=== PATIENT | male | born 1955 | race Caucasian/White ===

== ENCOUNTER 2020-09-04 10:07 | Inpatient (IN) | payer BC, MEDICARE ==
[2020-09-04] VITALS (15 sets, daily range): BP systolic 85–169; BP diastolic 42–89
[~2020-09-04] VITALS: Ht 190.5 cm; Wt 141.5 kg
[~2020-09-04 10:07] MED LIST: ALPR-624 PO; ATOR10TA PO; CARI350T PO; GEMF600T89 PO; LISI-234 PO; LOP25T PO; REM15T PO; VALP250C44 PO
[2020-09-04] MEDS ORDERED: normal saline 1000ML IV soln IVB ONE (10:15)
[2020-09-04] MEDS ORDERED: pantoprazole 40 MG vial IV ONE (10:15)
[2020-09-04] MEDS ORDERED: tranexamic acid 100mg/ml inj. IV ONE (10:20)
[2020-09-04] MEDS: pantoprazole 40MG/NS 100ML BAG 100 ML IV SCH ×3 (10:37→21:44)
[2020-09-04 10:39] LABS: BASOPHILS % (AUTO) 0.1 % (0-1); EOSINOPHILS % (AUTO) 0.1 % (0-6); LYMPHOCYTES # (AUTO) 1.2 X10'3 (1.1-4.8); LYMPHOCYTES % (AUTO) 9.9 % (21-51); MEAN CORPUSCULAR HEMOGLOBIN 30.3 PG (27.0-31.0); MEAN CORPUSCULAR VOLUME 89.1 FL (78-98); MONOCYTES # (AUTO) 0.6 X10'3 (0-0.9); MONOCYTES % (AUTO) 4.9 % (2-12); NEUTROPHILS # (AUTO) 10.2 X10'3 (1.8-7.7); PLATELET COUNT 198 X10'3 (140-440); RED BLOOD COUNT 2.19 X10'6 (4.70-6.10); RED CELL DISTRIBUTION WIDTH 13.2 % (11.5-14.5)
[2020-09-04 10:46] LABS: HEMATOCRIT 19.5 % (42.0-52.0); HEMOGLOBIN 6.6 g/dl (14.0-17.9)
[2020-09-04 10:52] LABS: PARTIAL THROMBOPLASTIN TIME 23 SECONDS (22-32)
--- NOTE | 2020-09-04 10:52 | NUR ---
Pt's is Megha Barrland [phone]
[2020-09-04 10:54] LABS: ALANINE AMINOTRANSFERASE 16 U/L (12-78); ALBUMIN 3.4 G/DL (3.4-5.0); ALBUMIN/GLOBULIN RATIO 1.3 (1.1-1.5); ALKALINE PHOSPHATASE 26 IU/L (46-116); ANION GAP 14 (8-16); ASPARTATE AMINO TRANSFERASE 10 U/L (10-37); BILIRUBIN,TOTAL 0.2 MG/DL (0.1-1.0); BLOOD UREA NITROGEN 43 MG/DL (7-18); BUN/CREATININE RATIO 35.5 (5.4-32.0); CALCIUM 7.9 MG/DL (8.5-10.1); CHLORIDE 104 MMOL/L (99-107); CREATININE 1.21 MG/DL (0.60-1.10); GLUCOSE 269 MG/DL (70-104); POTASSIUM 4.5 MMOL/L (3.5-5.1); SODIUM 140 MMOL/L (135-145); TOTAL CARBON DIOXIDE 21.6 MMOL/L (24-32); eGFR 61 ML/MIN
[2020-09-04] MEDS ORDERED: magnesium Cl slow-release 64mg tablet PO PRN (11:05)
[2020-09-04] MEDS ORDERED: potassium Cl 20 mEq SR tablet PO PRN ×2 (11:05)
[2020-09-04] MEDS ORDERED: ondansetron/PF 4mg/2ml inj IV PRN (11:05)
[2020-09-04] MEDS ORDERED: potassium Cl 40MEQ/1/2NS 520ml 520 ML IV PRN ×2 (11:05)
[2020-09-04] MEDS ORDERED: magnesium 2GM in 50ml NS 50 ML IV PRN (11:05)
[2020-09-04] MEDS ORDERED: magnesium 4gm in 100ml NS 100 ML IV PRN (11:05)
[2020-09-04] MEDS ORDERED: ATOR40TA72 PO (11:40)
[2020-09-04] MEDS ORDERED: ESCI10TA66 PO (11:40)
[2020-09-04] MEDS ORDERED: METF-438 PO (11:40)
[2020-09-04] MEDS ORDERED: GABA-530 PO (11:40)
[2020-09-04] MEDS ORDERED: FENO160T PO (11:40)
[2020-09-04] MEDS ORDERED: METO25TA6 PO (11:40)
[2020-09-04] MEDS ORDERED: CLON-568 PO (11:40)
[2020-09-04] MEDS ORDERED: LISI1TAB29 PO (11:40)
[2020-09-04] MEDS ORDERED: TRAZ150T78 PO (11:40)
[2020-09-04 11:41] LABS: CLARITY,URINE CLEAR (Clear); COLOR,URINE YELLOW (Yellow); GLUCOSE, URINE 500 mg/dl (Neg); KETONES,URINE TRACE mg/dl (Neg); LEUKOCYTE ESTERASE ,URINE NEGATIVE (Neg); NITRITES, URINE NEGATIVE (Neg); OCCULT BLOOD,URINE NEGATIVE (Neg); PROTEIN,URINE NEGATIVE (Neg); UROBILINOGEN,URINE 0.2 E.U/dL (0.2-1.0)
[2020-09-04] MEDS: normal saline 1000ml 1,000 ML IV SCH ×2 (11:44→21:05)
[2020-09-04 11:46] LABS: UA COLLECTION TYPE URINAL
--- NOTE | 2020-09-04 13:54 | NUR ---
Called to give pt's an update.
[2020-09-04] MEDS ORDERED: MESSAGE TO PHARMACY PO ONE (16:20)
[2020-09-04] MEDS ORDERED: glucagon, human recombinant 1mg kit SUBCUT PRN (16:20)
[2020-09-04] MEDS ORDERED: insulin Lispro (HumaLOG) vial - multi-dose SQ SCH (16:20)
[2020-09-04] MEDS ORDERED: dextrose ORAL solution 15 GM/59 ML bottle PO PRN ×2 (16:20)
[2020-09-04] MEDS ORDERED: dextrose 50%-water 50ml dispensing syringe IV PRN ×2 (16:20)
--- NOTE | 2020-09-04 16:48 | NUR ---
notified. PAGER ID: [phone] MESSAGE: RE: Joe Otero. [phone]. Could we do a CL diet for patient for dinner tonight? Patient has not eaten/likely not to go to GI for colonoscopy today. Thanks. Also both units of RBC given. Thanks. Dasha. [id number]
--- NOTE | 2020-09-04 17:58 | NUR ---
ct scan technologist to take patient down to GI Lab
[2020-09-04] MEDS ORDERED: MIDAZolam 5mg/5ml vial ONE (18:10)
[2020-09-04] MEDS ORDERED: fentaNYL/PF 50MCG/1 ML 2ML syringe ONE (18:10)
[2020-09-04] MEDS ORDERED: LIDOcaine Viscous 15ml cup ONE (18:10)
--- NOTE | 2020-09-04 18:28 | NUR ---
Problems reprioritized. Patient report given, questions answered & plan of care reviewed with HERMELINDO Antonio.
--- NOTE | 2020-09-04 18:30 | NUR ---
Pt is in GI LAB. I have received report and will assume care for him when he arrives back onto the unit.
[2020-09-04] MEDS ORDERED: epiNEPHrine 0.1mg/ml 10ml syringe ONE (19:21)
[2020-09-04] MEDS: K and/or MAG REPLACEMENT MC SCH (20:00)
--- NOTE | 2020-09-04 20:45 | NUR ---
Pt returned to unit. Vitals obtained, reoriented to unit, physical assessment completed. Pt c/o of mild abd pain r/t gas from EGD procedure
[2020-09-04] MEDS: insulin glargine (Lantus) pen - multi-dose SQ SCH (21:00)
[2020-09-04] MEDS: gabapentin 100mg capsule PO SCH (21:43)
[2020-09-04] MEDS: traZODone 150mg tablet PO SCH (21:43)
[2020-09-04] MEDS: metoprolol tartrate 25mg tablet PO SCH (21:44)
[2020-09-05] VITALS (10 sets, daily range): BP systolic 87–144; BP diastolic 35–75
[2020-09-05 00:30] LABS: RED BLOOD COUNT 2.11 X10'6 (4.70-6.10)
[2020-09-05 00:32] LABS: BASOPHILS % (AUTO) 0.1 % (0-1); EOSINOPHILS % (AUTO) 0.1 % (0-6); LYMPHOCYTES # (AUTO) 1.1 X10'3 (1.1-4.8); LYMPHOCYTES % (AUTO) 19.7 % (21-51); MEAN CORPUSCULAR HEMOGLOBIN 31.4 PG (27.0-31.0); MEAN CORPUSCULAR HGB CONC 34.9 g/dL (33.0-36.5); MEAN CORPUSCULAR VOLUME 90.2 FL (78-98); MONOCYTES # (AUTO) 0.3 X10'3 (0-0.9); MONOCYTES % (AUTO) 5.8 % (2-12); NEUTROPHILS # (AUTO) 4.2 X10'3 (1.8-7.7); NEUTROPHILS % (AUTO) 74.3 % (42-75); PLATELET COUNT 113 X10'3 (140-440); RED CELL DISTRIBUTION WIDTH 13.8 % (11.5-14.5); WHITE BLOOD COUNT 5.7 X10'3 (4.5-11.0)
[2020-09-05 00:40] LABS: HEMOGLOBIN 6.6 g/dl (14.0-17.9)
--- NOTE | 2020-09-05 00:44 | NUR ---
NOTIFIED PAGER ID: [phone] MESSAGE: [phone] Joe Kauffman Hemogram just came in at 6.6 and 19 bp and it is 80/38 NS running at [address]441
[2020-09-05] MEDS: pantoprazole 40MG/NS 100ML BAG 100 ML IV SCH ×5 (03:29→20:17)
--- NOTE | 2020-09-05 03:33 | NUR ---
Spoke with regarding abnormal hemogram results of 6.6 and 19. No noticeable change in his blood levels since since arriving in the ER and recieving two units of PRBCs. Recieved orders to tt Addendum: 09/05/20 at 0343 by Marisela Love RN note was submitted early..... recieved orders to transfuse 1 unit PRBCs this shift with a redraw hemogram in am.
--- NOTE | 2020-09-05 06:38 | NUR ---
Patient in room PCU 3012. I have received report from Marisela CASAREZ and had the opportunity to ask questions and assume patient care.
--- NOTE | 2020-09-05 06:39 | NUR ---
Problems reprioritized. Patient report given, questions answered & plan of care reviewed with Katherin CASAREZ.
[2020-09-05 06:53] LABS: ALBUMIN 2.7 G/DL (3.4-5.0); ANION GAP 10 (8-16); BLOOD UREA NITROGEN 24 MG/DL (7-18); BUN/CREATININE RATIO 25.8 (5.4-32.0); CALCIUM 7.2 MG/DL (8.5-10.1); CHLORIDE 110 MMOL/L (99-107); CREATININE 0.93 MG/DL (0.60-1.10); GLUCOSE 136 MG/DL (70-104); MAGNESIUM 1.7 MG/DL (1.5-2.4); POTASSIUM 3.6 MMOL/L (3.5-5.1); SODIUM 143 MMOL/L (135-145); TOTAL CARBON DIOXIDE 22.8 MMOL/L (24-32); eGFR 82 ML/MIN
[2020-09-05] MEDS: K and/or MAG REPLACEMENT MC SCH ×2 (07:03→18:41)
[2020-09-05 07:27] LABS: BASOPHILS % (AUTO) 0.1 % (0-1); EOSINOPHILS % (AUTO) 0.6 % (0-6); HEMOGLOBIN 7.3 g/dl (14.0-17.9); LYMPHOCYTES # (AUTO) 1.6 X10'3 (1.1-4.8); MEAN CORPUSCULAR HEMOGLOBIN 31.5 PG (27.0-31.0); MEAN CORPUSCULAR VOLUME 90.1 FL (78-98); MEAN PLATELET VOLUME 8.8 FL (7.4-10.4); MONOCYTES # (AUTO) 0.3 X10'3 (0-0.9); MONOCYTES % (AUTO) 6.5 % (2-12); NEUTROPHILS # (AUTO) 3.2 X10'3 (1.8-7.7); NEUTROPHILS % (AUTO) 61.8 % (42-75); PLATELET COUNT 110 X10'3 (140-440); RED BLOOD COUNT 2.31 X10'6 (4.70-6.10); RED CELL DISTRIBUTION WIDTH 14.2 % (11.5-14.5); WHITE BLOOD COUNT 5.1 X10'3 (4.5-11.0)
[2020-09-05 07:38] LABS: HEMATOCRIT 20.8 % (42.0-52.0)
[2020-09-05] MEDS: gabapentin 100mg capsule PO SCH ×2 (08:35→20:21)
[2020-09-05] MEDS: metoprolol tartrate 25mg tablet PO SCH ×2 (08:38→20:21)
[2020-09-05] MEDS: fenofibrate 145mg tablet PO SCH (08:38)
[2020-09-05] MEDS: ESCITALOPRAM OXALATE 5 MG TABLET PO SCH (08:39)
[2020-09-05] MEDS: atorvastatin 20mg tablet PO SCH (08:39)
[2020-09-05] MEDS: normal saline 1000ml 1,000 ML IV SCH ×2 (09:53→20:22)
--- NOTE | 2020-09-05 10:26 | NUR ---
Patient with BM, patient flushed before getting sample. Addendum: 09/05/20 at 1027 by Katherin Branham RN Amended: Links added.
--- NOTE | 2020-09-05 10:32 | NUR ---
PAGER ID: [phone] MESSAGE: [id number] Mr. Kauffman uses a CPAP at [facility]. Can he get an order to be fitted with ours, family can not bring his in. Katherin Esteban41 Addendum: 09/05/20 at [facility] by Katherin Branham RN Received order from Dr. Patrick for CPAP at [facility]. Page sent to RT with order for CPAP at [facility].
[2020-09-05 12:44] LABS: OCCULT BLOOD STOOL POSITIVE (Neg)
[2020-09-05 14:29] LABS: HEMOGLOBIN 7.2 g/dl (14.0-17.9); MEAN CORPUSCULAR HEMOGLOBIN 30.8 PG (27.0-31.0); MEAN CORPUSCULAR HGB CONC 34.4 g/dL (33.0-36.5); MEAN CORPUSCULAR VOLUME 89.5 FL (78-98); MEAN PLATELET VOLUME 8.4 FL (7.4-10.4); PLATELET COUNT 111 X10'3 (140-440); RED BLOOD COUNT 2.33 X10'6 (4.70-6.10); WHITE BLOOD COUNT 4.4 X10'3 (4.5-11.0)
[2020-09-05] MEDS: clonazePAM 1mg tablet PO PRN (14:31)
[2020-09-05 14:36] LABS: HEMATOCRIT 20.8 % (42.0-52.0)
--- NOTE | 2020-09-05 15:11 | NUR ---
DM Consult: A1C 7.1. Pt admit DX acute upper GIB s/p EGD w/ hx T2DM. Written DM ed w/ RD contact information placed in pt chart. To provide full initial assessment on above date. Addendum: 09/05/20 at [address] Amended: Links added.
--- NOTE | 2020-09-05 18:12 | NUR ---
Problems reprioritized. Patient report given, questions answered & plan of care reviewed with NOC Shift.
[2020-09-05] MEDS: traZODone 150mg tablet PO SCH (20:21)
[2020-09-05] MEDS: insulin glargine (Lantus) pen - multi-dose SQ SCH (21:00)
[2020-09-06 02:00] VITALS: BP 102/60
[2020-09-06] MEDS: pantoprazole 40MG/NS 100ML BAG 100 ML IV SCH ×6 (02:28→23:13)
[2020-09-06] MEDS: normal saline 1000ml 1,000 ML IV SCH (03:05)
[2020-09-06 06:00] VITALS: BP 124/68
--- NOTE | 2020-09-06 06:30 | NUR ---
REPORT GIVEN TO HERMELINDO LARSON.
[2020-09-06 06:47] LABS: BASOPHILS % (AUTO) 0.1 % (0-1); EOSINOPHILS # (AUTO) 0.1 X10'3 (0-0.9); EOSINOPHILS % (AUTO) 2.3 % (0-6); LYMPHOCYTES % (AUTO) 32.4 % (21-51); MEAN CORPUSCULAR HEMOGLOBIN 31.1 PG (27.0-31.0); MEAN CORPUSCULAR HGB CONC 34.3 g/dL (33.0-36.5); MEAN CORPUSCULAR VOLUME 90.7 FL (78-98); MEAN PLATELET VOLUME 8.3 FL (7.4-10.4); MONOCYTES # (AUTO) 0.2 X10'3 (0-0.9); MONOCYTES % (AUTO) 5.7 % (2-12); NEUTROPHILS # (AUTO) 1.9 X10'3 (1.8-7.7); NEUTROPHILS % (AUTO) 59.5 % (42-75); PLATELET COUNT 115 X10'3 (140-440); RED BLOOD COUNT 2.25 X10'6 (4.70-6.10); RED CELL DISTRIBUTION WIDTH 14.4 % (11.5-14.5); WHITE BLOOD COUNT 3.2 X10'3 (4.5-11.0)
[2020-09-06 06:54] LABS: HEMATOCRIT 20.4 % (42.0-52.0)
[2020-09-06 06:57] LABS: ALBUMIN 2.7 G/DL (3.4-5.0); ANION GAP 7 (8-16); BLOOD UREA NITROGEN 11 MG/DL (7-18); BUN/CREATININE RATIO 12.2 (5.4-32.0); CALCIUM 7.1 MG/DL (8.5-10.1); CHLORIDE 112 MMOL/L (99-107); GLUCOSE 139 MG/DL (70-104); MAGNESIUM 1.8 MG/DL (1.5-2.4); POTASSIUM 3.8 MMOL/L (3.5-5.1); SODIUM 144 MMOL/L (135-145); TOTAL CARBON DIOXIDE 25.3 MMOL/L (24-32); eGFR 85 ML/MIN
--- NOTE | 2020-09-06 06:58 | NUR ---
Patient in room PCU 3012. I have received report from Cheryle CASAREZ and had the opportunity to ask questions and assume patient care.
--- NOTE | 2020-09-06 07:04 | NUR ---
PAGER ID: [phone] MESSAGE: [phone] Re: Otero 3012C Critical H&H 7.0/20.4 Please Call Addendum: 09/06/20 at 1249 by Jessy Yost RN Dr Patrick aware patient has NS @100 running orders to DC IV fluids, will recheck H&H at 1300 to decide if we will transfuse blood.
[2020-09-06] MEDS: K and/or MAG REPLACEMENT MC SCH ×2 (08:00→20:00)
[2020-09-06] MEDS: ESCITALOPRAM OXALATE 5 MG TABLET PO SCH (08:06)
[2020-09-06] MEDS: metoprolol tartrate 25mg tablet PO SCH ×2 (08:07→20:42)
[2020-09-06] MEDS: gabapentin 100mg capsule PO SCH ×2 (08:07→20:42)
[2020-09-06] MEDS: atorvastatin 20mg tablet PO SCH (08:07)
[2020-09-06] MEDS: fenofibrate 145mg tablet PO SCH (08:08)
[2020-09-06] MEDS: acetaminophen 325mg tablet PO PRN (10:39)
[2020-09-06 11:30] VITALS: BP 113/65
[2020-09-06 13:25] LABS: HEMATOCRIT 23.1 % (42.0-52.0); HEMOGLOBIN 7.9 g/dl (14.0-17.9); MEAN CORPUSCULAR HGB CONC 34.4 g/dL (33.0-36.5); MEAN CORPUSCULAR VOLUME 90.1 FL (78-98); MEAN PLATELET VOLUME 8.3 FL (7.4-10.4); PLATELET COUNT 136 X10'3 (140-440); RED BLOOD COUNT 2.56 X10'6 (4.70-6.10); RED CELL DISTRIBUTION WIDTH 14.7 % (11.5-14.5); WHITE BLOOD COUNT 4.3 X10'3 (4.5-11.0)
[2020-09-06 17:00] VITALS: BP 123/72
[2020-09-06 18:00] VITALS: BP 125/58
--- NOTE | 2020-09-06 18:28 | NUR ---
Problems reprioritized. Patient report given, questions answered & plan of care reviewed with Bear CASAREZ.
--- NOTE | 2020-09-06 18:30 | NUR ---
Patient in room PCU 3012. I have received report from HERMELINDO LARSON and had the opportunity to ask questions and assume patient care.
[2020-09-06] MEDS: clonazePAM 1mg tablet PO PRN (20:41)
[2020-09-06] MEDS: traZODone 150mg tablet PO SCH (20:41)
[2020-09-06] MEDS: insulin glargine (Lantus) pen - multi-dose SQ SCH (21:00)
[2020-09-06 22:00] VITALS: BP 124/61
[2020-09-07 02:00] VITALS: BP 147/70
[2020-09-07] MEDS: pantoprazole 40MG/NS 100ML BAG 100 ML IV SCH ×2 (04:54→11:00)
[2020-09-07 06:00] VITALS: BP 110/60
--- NOTE | 2020-09-07 06:30 | NUR ---
Problems reprioritized. Patient report given, questions answered & plan of care reviewed with HERMELINDO THOMAS.
--- NOTE | 2020-09-07 06:34 | NUR ---
Patient in room PCU 3012. I have received report from Renetta and had the opportunity to ask questions and assume patient care.
[2020-09-07 07:21] LABS: BASOPHILS % (AUTO) 0.1 % (0-1); EOSINOPHILS # (AUTO) 0.1 X10'3 (0-0.9); EOSINOPHILS % (AUTO) 1.9 % (0-6); HEMOGLOBIN 7.5 g/dl (14.0-17.9); LYMPHOCYTES % (AUTO) 27.4 % (21-51); MEAN CORPUSCULAR HEMOGLOBIN 31.2 PG (27.0-31.0); MEAN CORPUSCULAR HGB CONC 34.5 g/dL (33.0-36.5); MEAN CORPUSCULAR VOLUME 90.5 FL (78-98); MEAN PLATELET VOLUME 8.5 FL (7.4-10.4); MONOCYTES # (AUTO) 0.2 X10'3 (0-0.9); MONOCYTES % (AUTO) 6.2 % (2-12); NEUTROPHILS # (AUTO) 2.5 X10'3 (1.8-7.7); NEUTROPHILS % (AUTO) 64.4 % (42-75); PLATELET COUNT 137 X10'3 (140-440); RED BLOOD COUNT 2.39 X10'6 (4.70-6.10); RED CELL DISTRIBUTION WIDTH 14.3 % (11.5-14.5); WHITE BLOOD COUNT 3.8 X10'3 (4.5-11.0)
[2020-09-07 07:23] LABS: HEMATOCRIT 21.6 % (42.0-52.0)
[2020-09-07 07:53] LABS: ANION GAP 8 (8-16); BLOOD UREA NITROGEN 8 MG/DL (7-18); BUN/CREATININE RATIO 8.4 (5.4-32.0); CALCIUM 8.2 MG/DL (8.5-10.1); CHLORIDE 110 MMOL/L (99-107); CREATININE 0.95 MG/DL (0.60-1.10); GLUCOSE 150 MG/DL (70-104); MAGNESIUM 1.9 MG/DL (1.5-2.4); POTASSIUM 3.6 MMOL/L (3.5-5.1); SODIUM 142 MMOL/L (135-145); TOTAL CARBON DIOXIDE 24.4 MMOL/L (24-32); eGFR 80 ML/MIN
[2020-09-07] MEDS: K and/or MAG REPLACEMENT MC SCH (08:00)
[2020-09-07] MEDS: ESCITALOPRAM OXALATE 5 MG TABLET PO SCH (08:08)
[2020-09-07] MEDS: fenofibrate 145mg tablet PO SCH (08:09)
[2020-09-07] MEDS: metoprolol tartrate 25mg tablet PO SCH (08:09)
[2020-09-07] MEDS: atorvastatin 20mg tablet PO SCH (08:10)
[2020-09-07] MEDS: gabapentin 100mg capsule PO SCH (08:10)
--- NOTE | 2020-09-07 09:23 | NUR ---
Pt is waiting for doctor to discharge sometime today and said his bloodsugars are controlled on his home DM medications. he doesnt want to be poked since hes going home.
[2020-09-07] MEDS ORDERED: PANT-47 PO (10:48)
[2020-09-07] MEDS ORDERED: LISI10TA4 PO (10:48)
[2020-09-07] MEDS: acetaminophen 325mg tablet PO PRN (10:57)
[2020-09-07 11:00] VITALS: BP 147/71
--- NOTE | 2020-09-07 13:09 | NUR ---
Pt picking him up at 4:30 still doesn't want to be poked since he will be restarting his normal Diabetes regimen tonight at home
--- NOTE | 2020-09-07 16:45 | NUR ---
Patient left with and grandkids. Patient was stable and in good spirits. Discharge instructions went over and sent with patient.
--- NOTE | 2020-09-08 14:42 | NUR ---
CASE MANAGEMENT DISCHARGE FOLLOW UP: T/c to pt #[phone], line rang but no voicemail set up, unable to leave message. T/c to secondary #[phone], voicemail was for a "Bill", no message left. Unable to contact pt.
== END 2020-09-07 16:30 | disposition home or self-care (01) | DRG 377 ==
LOC: ER 10:07 → ED HOLD 11:04 → PCU 3S 16:02
PROVIDERS: ADMIT Internal Medicine; ATTEND Internal Medicine
PROC: 0DB68ZX Excision of Stomach, Via Natural or Artificial Opening Endoscopic, Diagnostic (ICD-10-PCS; principal; 2020-09-04)
PROC: 0W3P8ZZ Control Bleeding in Gastrointestinal Tract, Via Natural or Artificial Opening Endoscopic (ICD-10-PCS; 2020-09-04)
PROC: 30233N1 Transfusion of Nonautologous Red Blood Cells into Peripheral Vein, Percutaneous Approach (ICD-10-PCS; 2020-09-04)
PROC: 5A09357 Assistance with Respiratory Ventilation, Less than 24 Consecutive Hours, Continuous Positive Airway Pressure (ICD-10-PCS; 2020-09-05)
PROC: 5A09357 Assistance with Respiratory Ventilation, Less than 24 Consecutive Hours, Continuous Positive Airway Pressure (ICD-10-PCS; 2020-09-06)
DX: K26.4 Chronic or unspecified duodenal ulcer with hemorrhage (principal); N17.0 Acute kidney failure with tubular necrosis; D64.9 Anemia, unspecified; E11.9 Type 2 diabetes mellitus without complications; E78.00 Pure hypercholesterolemia, unspecified; E78.5 Hyperlipidemia, unspecified; E86.0 Dehydration; F41.8 Other specified anxiety disorders; K29.70 Gastritis, unspecified, without bleeding; I10 Essential (primary) hypertension; K21.9 Gastro-esophageal reflux disease without esophagitis; K29.80 Duodenitis without bleeding; Z79.82 Long term (current) use of aspirin; Z79.84 Long term (current) use of oral hypoglycemic drugs; Z79.899 Other long term (current) drug therapy
CPT/HCPCS: 36415; 36430; 43227; 43239; 43255; 71045; 80048; 80053; 81003; 82272; 82948; 83036; 83735; 85025; 85027; 85610; 85730; 86885; 86900; 86901; 86920; 87081; 93005; 94660; 94760; 96374; 96375; 99152; 99153; 99291; A4620; C9113; G0378; J0171; J1815; J2250; J3010; J7030; J7040; P9016